=== PATIENT | female | born 1935 | race Caucasian/White ===

== ENCOUNTER 2023-07-08 15:35 | Emergency (ER) | payer MEDICARE ==
--- NOTE | 2023-07-08 16:06 | ED ---
General Adult HPI - General Chief complaint: Head Injury Stated complaint: Fall- hit back of head & R eye/on blood thinner Time Seen by Provider: 07/08/23 15:50 Source: patient, family, RN notes reviewed, old records reviewed Mode of arrival: ambulatory Limitations: no limitations - History of Present Illness Initial comments: This is an 87-year-old female who comes to the emergency department stating she fell on Wednesday because she tripped over her walker. Patient states she is on a blood thinner. Patient states she did not lose conscious did not become days. Patient states she does have a little neck soreness bilaterally but none in the center of her neck. Patient denies any new numbness or weakness. Patient states she has some blackness around her right eye but there is no tenderness. Patient denies any visual disturbance. Patient denies any chest back or extremity pain. Patient visiting nurse sent her to the emergency department after she evaluated her - Related Data Allergies Allergy/AdvReac Type Severity Reaction Status Date / Time No Known Allergies Allergy Verified 07/08/23 15:51 Review of Systems ROS Statement: Those systems with pertinent positive or pertinent negative responses have been documented in the HPI. ROS Other: All systems not noted in ROS Statement are negative. Past Medical History Past Medical History: Atrial Fibrillation, Chest Pain / Angina, Heart Failure, Thyroid Disorder Past Surgical History: Cholecystectomy, Orthopedic Surgery Additional Past Surgical History / Comment(s): thyroidectomy Smoking Status: Never smoker Past Alcohol Use History: None Reported Past Drug Use History: None Reported General Exam - General Exam Comments Initial Comments: GENERAL: Patient is well-developed and well-nourished. Patient is nontoxic and well- hydrated and is in mild distress. ENT: Neck is soft and supple. No significant lymphadenopathy is noted. Oropharynx is clear. Moist mucous membranes. Neck has full range of motion without eliciting any pain. Patient does have some tenderness in the trapezius muscle bilaterally patient has no spinous process tenderness. There is no thyroid enlargement and no masses were felt. Patient has a little bruising on the forehead over the right eye EYES: The sclera were anicteric and conjunctiva were pink and moist. Extraocular movements were intact and pupils were equal round and reactive to light. P atient has ecchymosis around the right eye PULMONARY: Unlabored respirations. Good breath sounds bilaterally. No audible rales rhonchi or wheezing was noted. CARDIOVASCULAR: There is a regular rate and rhythm without any murmurs gallops or rubs. Femoral pulses are equal bilaterally ABDOMEN: Soft and nontender with normal bowel sounds. No palpable organomegaly was noted. There is no palpable pulsatile mass. SKIN: Skin is clear with no lesions or rashes and otherwise unremarkable. NEUROLOGIC: Patient is alert and oriented x3. Cranial nerves II through XII are grossly intact. Motor and sensory are also intact. Normal speech, volume and content. Symmetrical smile. Cerebellar exam grossly intact. MUSCULOSKELETAL: Normal extremities with adequate strength and full range of motion. No lower extremity swelling or edema. No calf tenderness. LYMPHATICS: No significant lymphadenopathy is noted PSYCHIATRIC: Normal psychiatric evaluation. Limitations: no limitations Course Vital Signs 07/08/23 15:48 Temperature 97.6 F Pulse Rate 47 L Respiratory 16 Rate Blood Pressure 111/61 O2 Sat by Pulse 98 Oximetry Medical Decision Making - Medical Decision Making Was pt. sent in by a medical professional or institution (, PA, PELT GRADER, urgent care, hospital, or half-way...) When possible be specific @ -Patient was told to come in by her visiting nurse. Did you speak to anyone other than the patient for history (EMS, parent, family, police, friend...)? What history was obtained from this source @ -No Did you review nursing and triage notes (agree or disagree)? Why? @ -I reviewed and agree with nursing and triage notes Were old charts reviewed (outside hosp., previous admission, EMS record, old EKG, old radiological studies, urgent care reports/EKG's, half-way records)? Report findings @ -No old charts were reviewed Differential Diagnosis (chest pain, altered mental status, abdominal pain women, abdominal pain men, vaginal bleeding, weakness, fever, dyspnea, syncope, headache, dizziness, GI bleed, back pain, seizure, CVA, palpatations, mental health, musculoskeletal)? @ -Differential Musculoskeletal Muscular strain, contusion, ligament sprain, fracture, arthritis, septic arthritis, bursitis, cellulitis, muscle spasm, nerve compression, DVT, arterial occlusion, herpes zoster, electrolyte abnormality, tumor.... This is not meant to be in all inclusive list EKG interpreted by me (3pts min.). @ -As above X-rays interpreted by me (1pt min.). @ -None done CT interpreted by me (1pt min.). @ -CT of the brain shows no acute normality. CT of the C-spine shows a C3 lamina fracture that is nondisplaced and facets are congruent. CT of the orbits showed no acute abnormality U/S interpreted by me (1pt. min.). @ -None done What testing was considered but not performed or refused? (CT, X-rays, U/S, labs)? Why? @ -None What meds were considered but not given or refused? Why? @ -None Did you discuss the management of the patient with other professionals (professionals i.e. DrGuillermina, PA, PELT GRADER, lab, RT, psych nurse, social sciences instructor, sales representative graphic art, teacher, community reinvestment act officer, case fitter)? Give summary @ -No Was smoking cessation discussed for >3mins.? @ -No Was critical care preformed (if so, how long)? @ -No Were there social determinants of health that impacted care today? How? (Homelessness, low income, unemployed, alcoholism, drug addiction, transportation, low edu. Level, literacy, decrease access to med. care, skilled nursing, re hab)? @ -No Was there de-escalation of care discussed even if they declined (Discuss DNR or withdrawal of care, Hospice)? DNR status @ -No What co-morbidities impacted this encounter? (DM, HTN, Smoking, COPD, CAD, Cancer, CVA, ARF, Chemo, Hep., AIDS, mental health diagnosis, sleep apnea, morbid obesity)? @ -None Was patient admitted / discharged? Hospital course, mention meds given and route, prescriptions, significant lab abnormalities, going to OR and other pertinent info. @ -I spoke with Dr. Azar because Dr. Murphy was out of town. Dr. Azar wanted the patient placed in a Lissie J type collar and to follow-up with him in the office. Patient remains neurologically intact Undiagnosed new problem with uncertain prognosis? @ -No Drug Therapy requiring intensive monitoring for toxicity (Heparin, Nitro, Insulin, Cardizem)? @ -No Were any procedures done? @ -No Diagnosis/symptom? @ -C3 fracture Acute, or Chronic, or Acute on Chronic? @ -Acute Uncomplicated (without systemic symptoms) or Complicated (systemic symptoms)? @ -Complicated Side effects of treatment? @ -No Exacerbation, Progression, or Severe Exacerbation? @ -No Poses a threat to life or bodily function? How? (Chest pain, [place], [place], pneumonia, PE, COPD, DKA, ARF, appy, cholecystitis, CVA, Diverticulitis, Homicidal, Suicidal, threat to staff... and all critical care pts) @ -No Disposition Clinical Impression: C3 cervical fracture Disposition: HOME SELF-CARE Condition: Good Instructions (If sedation given, give patient instructions): Cervical Fracture (ED) Is patient prescribed a controlled substance at d/c from ED?: No Referrals: Alex Azar DO [Doctor of Osteopathic Medicine] - 1-2 days Time of Disposition: 17:52
--- NOTE | 2023-07-08 17:29 | CT ---
EXAMINATION TYPE: CT brain cspine wo con DATE OF EXAM: 07/08/2023 COMPARISON: NONE HISTORY: Fall, hit back of head and Rt eye, on thinners. CT DLP: Combined DLP of 1055.9 mGycm. Automated Exposure Control for Dose Reduction was Utilized. TECHNIQUE: CT scan of the head and cervical spine are performed without contrast. FINDINGS: There is no acute intracranial hemorrhage, mass effect, or midline shift identified. The ve ntricles and sulci are within normal limits in size. The globes are intact and the visualized sinuses are clear. Cervical spine is visualized in its entirety from C1 through upper thoracic levels. 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 There is a nondisplaced C3 fracture line through the kiya a (coronal image 55/100 and sagittal image 51/100). There is no malalignment. The facet joints are co ngruent, and the pedicles and vertebral bodies are intact. Foramen transversarium are negative. The f racture line is not well seen on the axial images as the images were obtained in the same transverse plane of the fracture line. Results discussed with ordering physician 07/08/2023 at 5:20 PM. IMPRESSION: 1. CT Cervical Spine: Nondisplaced C3 lamina fracture. 2. CT Head: No acute process.
--- NOTE | 2023-07-08 17:33 | CT ---
EXAMINATION TYPE: CT orbits wo con DATE OF EXAM: 07/08/2023 HISTORY: Fall, hit back of head and Rt eye, on thinners. TECHNIQUE: Departmental protocol. CT DLP: 1055.9 mGycm. Automated exposure control for dose reduction was used. COMPARISON: None FINDINGS / IMPRESSION: Negative for fracture or malalignment. The orbits are intact. Paranasal sinuses are clear. No incidental findings.
[2023-07-08 18:29] VITALS: BP 110/64; PULSE 48; RESP 20; TEMP 97.5
== END 2023-07-08 17:59 | disposition home or self-care (01) ==
LOC: EC 15:35
DX: S12.201A Unspecified nondisplaced fracture of third cervical vertebra, initial encounter for closed fracture (principal); S00.83XA Contusion of other part of head, initial encounter; W01.0XXA Fall on same level from slipping, tripping and stumbling without subsequent striking against object, initial encounter
CPT/HCPCS: 72125; 70450; 70480; 99283; L0174